=== PATIENT | male | born 1985 | race Caucasian/White ===

== ENCOUNTER 2021-07-19 21:03 | Emergency (ER) | payer OTHER ==
[~2021-07-19] VITALS: Ht 172.7 cm; Wt 97.5 kg
--- NOTE | 2021-07-19 21:20 | NUR ---
TO ER BED 19. BIBS C/O L SHOULDER MUSCLE PAIN. NO TRUAMA NOTED. PT TOOK IBUPROFEN WITH LITTLE RELIEF. AWAITING MD BAZAN
--- NOTE | 2021-07-19 22:00 | NUR ---
XRAY AT BEDSIDE
[2021-07-19] MEDS ORDERED: IBUP-1957 PO (22:38)
--- NOTE | 2021-07-19 22:40 | NUR ---
Patient discharged to home in stable condition. Written and verbal after care instructions given. Patient verbalizes understanding of instruction.
[2021-07-19 22:41] VITALS: BP 135/90
[2021-07-19] MEDS ORDERED: DEXAMETHASONE SOD PHOSPHATE 10 MG/ML VIAL ONE (22:57)
[2021-07-19] MEDS ORDERED: KETOROLAC TROMETHAMINE INJ 60 MG/2 ML VIAL IM ONE ×2 (22:57→23:00)
[2021-07-19] MEDS ORDERED: DEXAMETHASONE SOD PHOSPHATE 4 MG/ML VIAL IM ONE (23:00)
[2021-07-19] MEDS ORDERED: IBUPROFEN 400 MG TABLET PO ONE (23:00)
== END 2021-07-19 22:40 | disposition home or self-care (01) ==
LOC: ER 21:03
DX: M75.32 Calcific tendinitis of left shoulder (principal); Z79.1 Long term (current) use of non-steroidal anti-inflammatories (NSAID)
CPT/HCPCS: 73030; 96372 ×2; 99284; J1100; J1885

== ENCOUNTER 2023-05-15 22:49 | Emergency (ER) | payer OTHER ==
[~2023-05-15] VITALS: Ht 175.3 cm; Wt 90.7 kg
[~2023-05-15 22:49] MED LIST: IBUP-1957 PO
[2023-05-15 23:13] VITALS: BP 121/80; TEMP 98.1
[2023-05-15 23:15] VITALS: O2SAT 99
== END 2023-05-15 23:51 | disposition home or self-care (01) ==
LOC: ER 22:55
DX: L29.9 Pruritus, unspecified (principal)